=== PATIENT | male | born 1960 | race Caucasian/White ===

== ENCOUNTER → 2018-07-09 | Outpatient (CLI) | payer BC ==
[~2018-07-09] MED LIST: ASPIRIN 81M81 MG/TA2 PO; GLUCOSAMINE & C1 CA1 PO; HYZAAR 50-12.1 UDTAB PO; LOPID 600M600 MG/TAB PO; MULTIPLE VITAMI1 CAP PO; NIACIN500 M3 PO
== END ==
LOC: COL.RAD 13:12
DX: M17.12 Unilateral primary osteoarthritis, left knee (principal); M71.22 Synovial cyst of popliteal space [Baker], left knee; S83.232A Complex tear of medial meniscus, current injury, left knee, initial encounter